=== PATIENT | female | born 1975 | race Caucasian/White ===

== ENCOUNTER 2025-05-05 18:53 | Emergency (ER) | payer OTHER ==
[~2025-05-05] VITALS: Ht 170.2 cm; Wt 59.0 kg
[2025-05-05 19:00] VITALS: BP 107/72; O2SAT 99
== END 2025-05-05 21:30 | disposition left against medical advice (07) ==
LOC: ER 18:53
DX: M79.606 Pain in leg, unspecified (principal); Z53.21 Procedure and treatment not carried out due to patient leaving prior to being seen by health care provider